=== PATIENT | male | born 2000 | race Two or more races ===

== ENCOUNTER → 2023-04-08 | Emergency (ER) | payer OTHER ==
[~2023-04-08] VITALS: Ht 177.8 cm; Wt 56.7 kg
== END | disposition home or self-care (01) ==
LOC: ER 13:45
DX: S70.212A Abrasion, left hip, initial encounter (principal); X58.XXXA Exposure to other specified factors, initial encounter; Y93.9 Activity, unspecified; Y92.89 Other specified places as the place of occurrence of the external cause; Y99.9 Unspecified external cause status

== ENCOUNTER 2023-08-24 12:55 | Emergency (ER) | payer OTHER ==
[~2023-08-24] VITALS: Ht 177.8 cm; Wt 57.6 kg
[2023-08-24 17:25] LABS: HEMATOCRIT 41.9 % (39.0-48.0); HEMOGLOBIN 14.5 g/dL (13-16.00); MEAN CELL VOLUME 87.2 fL (80.0-100.00); MEAN CORPUSCULAR HEMOGLOBIN 30.2 pg (27.00-32.0); MEAN CORPUSCULAR HGB CONC 34.6 g/dl (32.0-36.0); PLATELET COUNT 203 K/uL (150-450); RED CELL DISTRIBUTION WIDTH 13.5 % (11.5-14.5)
[2023-08-24 17:37] LABS: CALCIUM 9.4 mg/dL (8.5-10.1); CREATININE SERUM 0.99 mg/dL (0.70-1.30); GFR 92.87; POTASSIUM 3.36 mEq/L (3.5-5.1)
[2023-08-24 18:46] LABS: URINE APPEARANCE Clear; URINE BILIRRUBIN Negative (NEGATIVE); URINE BLOOD Negative; URINE COLOR Yellow; URINE GLUCOSE Negative (NEGATIVE); URINE LEUKOCYTE Negative; URINE NITRATE Negative; URINE PROTEIN Trace (NEGATIVE); URINE UROBILINOGEN 0.2 E.U./dl
[2023-08-24 18:50] LABS: URINE BACTERIA 18.8 uL (0.0-1933); URINE EPITHELIAL CELLS 2.3 uL (0.0-38.8); URINE WBC 5.7 uL (0.0-23.2)
[2023-08-24 18:57] LABS: URINE RBC 1.8 uL (0.0-20.8)
[2023-08-24] MEDS ORDERED: PEPCID20 MG PO (20:03)
[2023-08-24] MEDS ORDERED: DICY20TA PO (20:03)
[2023-08-24] MEDS ORDERED: ZOFRAN8 MG PO (20:03)
== END 2023-08-24 20:07 | disposition home or self-care (01) ==
LOC: ER 12:55
PROVIDERS: General Practice
DX: K52.89 Other specified noninfective gastroenteritis and colitis (principal)